=== PATIENT | male | born 1975 | race Caucasian/White ===

== ENCOUNTER 2019-09-17 10:18 | Outpatient (CLI) | payer BC, SELFPAY ==
[2019-09-17 13:19] LABS: Anion Gap 8.8 mmol/L (3-11); BUN 17 mg/dL (7-18); CO2 30.2 mmol/L (21.0-32.0); CREATININE 0.83 mg/dL (0.70-1.30); Calcium 9.4 mg/dL (8.5-10.1); Calculated LDL 106 mg/dL (<100); Chloride 100 mmol/L (98-107); Cholesterol 199 mg/dL (<200); Glucose 91 mg/dL (74-106); HDL Cholesterol 40 mg/dL (40-60); Potassium 4.4 mmol/L (3.5-5.1); Sodium 139 mmol/L (136-145); Triglyceride 268 mg/dL (<150)
== END 2019-09-17 10:38 ==
PROVIDERS: PCP Family Medicine; Visit Provider Family Medicine
DX: Z00.00 Encounter for general adult medical examination without abnormal findings (principal); Z13.220 Encounter for screening for lipoid disorders
CPT/HCPCS: 36415; 80048; 80061

== ENCOUNTER 2020-06-22 05:04 | Outpatient (CLI) | payer BC, SELFPAY ==
[2020-06-22 08:35] LABS: HCT 41.6 % (40.0-50.0); HGB 14.5 g/dL (13.5-17.5); MCH 31.9 pg (27.0-33.0); MCHC 34.9 % (32.0-36.0); MCV 91.4 fL (80-95); MPV 11.7 fL (8.0-11.0); Platelet Count 209 10^3/uL (130-400); RBC 4.55 10^6/uL (4.36-5.78); RDW 12.7 % (11.8-14.1); RDW-SD 42.6 fL; WBC 9.15 10^3/uL (4.4-10.8)
[2020-06-22 09:39] LABS: Anion Gap 14.7 mmol/L (3-11); BUN 14 mg/dL (7-18); CO2 25.3 mmol/L (21.0-32.0); CREATININE 1.01 mg/dL (0.70-1.30); Calcium 9.2 mg/dL (8.5-10.1); Chloride 98 mmol/L (98-107); Glucose 115 mg/dL (74-106); Magnesium 1.9 mg/dL (1.8-2.4); Potassium 3.9 mmol/L (3.5-5.1); Sodium 138 mmol/L (136-145)
== END 2020-06-22 05:24 ==
PROVIDERS: PCP Family Medicine; Visit Provider Family Medicine
DX: R25.2 Cramp and spasm (principal); K21.9 Gastro-esophageal reflux disease without esophagitis; I10 Essential (primary) hypertension
CPT/HCPCS: 36415; 80048; 85027; 83735

== ENCOUNTER 2020-12-28 02:26 | Outpatient (CLI) | payer BC, SELFPAY ==
[2020-12-28 13:12] LABS: Hemoglobin A1C 6.5 % (<5.7)
[2020-12-28 13:22] LABS: Calculated LDL 188 mg/dL (<100); Cholesterol 281 mg/dL (<200); HDL Cholesterol 45 mg/dL (40-60); TSH (W/Ref FT4) 0.73 uIU/mL (0.36-3.74); Triglyceride 240 mg/dL (<150)
== END 2020-12-28 02:27 | disposition home or self-care (01) ==
LOC: LOS 02:26
PROVIDERS: PCP Nurse Practitioner Family; Visit Provider Family Medicine
DX: E66.09 Other obesity due to excess calories (principal); Z13.1 Encounter for screening for diabetes mellitus; Z13.220 Encounter for screening for lipoid disorders
CPT/HCPCS: 36415; 80061; 83036; 84443

== ENCOUNTER 2022-04-30 09:14 | Outpatient (REF) | payer BC, SELFPAY ==
[2022-04-30 16:26] LABS: Abs Immature Grans 0.02 10^3/uL (0.0-0.06); Absolute Basophil Count 0.07 10^3/uL (0.0-0.2); Absolute Eosinophil Count 0.18 10^3/uL (0.0-0.7); Absolute Lymphocyte Count 1.99 10^3/uL (1.2-3.4); Absolute Monocyte Count 0.73 10^3/uL (0.1-0.8); Absolute Neutrophil Count 3.74 10^3/uL (1.2-6.7); Eosinophils % 2.7; HCT 40.2 % (40.0-50.0); HGB 13.3 g/dL (13.5-17.5); Immature Grans % 0.3; Lymphocytes % 29.6; MCH 31.3 pg (27.0-33.0); MCHC 33.1 % (32.0-36.0); MCV 95 fL (80-95); Monocytes % 10.8; Neutrophils % 55.6; Platelet Count 176 10^3/uL (130-400); RBC 4.25 10^6/uL (4.36-5.78); RDW 12.9 % (11.8-14.1); RDW-SD 44.5 fL; WBC 6.73 10^3/uL (4.4-10.8)
[2022-04-30 16:50] LABS: ALT 31 U/L (16-63); AST 19 U/L (15-37); Albumin 4.1 g/dL (3.4-5.0); Alkaline Phosphatase 52 U/L (46-116); Anion Gap 8.8 mmol/L (3-11); BUN 19 mg/dL (7-18); Bilirubin, Total 0.3 mg/dL (0.2-1.0); CO2 26.2 mmol/L (21.0-32.0); CREATININE 0.9 mg/dL (0.70-1.30); Calcium 8.8 mg/dL (8.5-10.1); Calculated LDL 99 mg/dL (<100); Chloride 103 mmol/L (98-107); Cholesterol 168 mg/dL (<200); Estimated GFR 106.67 (mL/min/1.73m2); Glucose 120 mg/dL (74-106); HDL Cholesterol 49 mg/dL (40-60); Potassium 4.5 mmol/L (3.5-5.1); Sodium 138 mmol/L (136-145); Total Protein 7.4 g/dL (6.4-8.2); Triglyceride 104 mg/dL (<150)
[2022-04-30 16:56] LABS: Hemoglobin A1C 6.3 % (<5.7)
== END 2022-04-30 09:15 | disposition home or self-care (01) ==
LOC: NCHCN 09:14
PROVIDERS: PCP Physician Assistant Medical; Visit Provider Physician Assistant Medical
DX: E11.9 Type 2 diabetes mellitus without complications (principal); R25.2 Cramp and spasm; E78.5 Hyperlipidemia, unspecified
CPT/HCPCS: 80053; 80061; 83036; 83735; 85025

== ENCOUNTER 2023-03-11 10:27 | Outpatient (CLI) | payer BC, SELFPAY ==
--- NOTE | 2023-03-11 08:30 | DI.RAD_ITS ---
Exam(s) XR SHOULDER RT COMPLETE 2+V EXAM: XR SHOULDER RT COMPLETE 2+V CLINICAL HISTORY: right shoulder pain. TECHNIQUE: 2D digital imaging was performed of the right shoulder. Two images were obtained. AP an d axillary views were obtained. COMPARISON: No exams were available for comparison FINDINGS: BONES: No acute fracture is present. No bony destructive lesion is seen. JOINTS: No dislocation present. The glenohumeral and acromioclavicular joints are well maintained. SOFT TISSUE: Normal. IMPRESSION: Unremarkable radiographs of the right shoulder. DATA REPOSITORY: RADIATION DOSE DELIVERED:
== END 2023-03-11 10:28 | disposition home or self-care (01) ==
LOC: DIORS 10:27
PROVIDERS: PCP Physician Assistant Medical; Visit Provider Student in an Organized Health Care Education/Training Program
DX: M25.511 Pain in right shoulder (principal)
CPT/HCPCS: 73030

== ENCOUNTER 2023-06-24 10:08 | Day surgery (SDC) | payer BC, SELFPAY | END 2023-06-24 10:09 | disposition home or self-care (01) | LOC: SUR 08-18 10:08 | PROVIDERS: PCP Physician Assistant Medical; Visit Provider Student in an Organized Health Care Education/Training Program | DX: Z53.9 Procedure and treatment not carried out, unspecified reason (principal) ==

== ENCOUNTER 2023-07-20 09:01 | Emergency (ER) | payer BC, SELFPAY ==
[2023-07-20 09:16] VITALS: BP 167/94; PULSE 86; RESP 14; TEMP 36.8; O2SAT 100
--- NOTE | 2023-07-20 09:28 | W.ED.GENAD ---
Discharge Plan Disposition Patient Disposition: Home Condition: Stable Discharge Details Clinical Impression: Right arm pain Primary Care Provider: Rita Rae ED Provider: Sim Lowery Home Meds and New Rx's Prescriptions: Continued (DME) blood-glucose meter [Advanced Glucose Meter] Misc See Rx Instructions .ROUTE .MEDSUPPLY Qty: 1 0RF Rx Instructions: As directed (DME) lancets [1st Tier Unilet ComforTouch] 30 gauge misc See Rx Instructions .ROUTE .MEDSUPPLY Qty: 100 0RF Rx Instructions: Daily omeprazole 20 mg tablet,delayed release (DR/EC) 20 mg PO DAILY Qty: 90 2RF ONE-A-DAY MEN'S 1 TAB tablet 1 tab PO AM (DME) Advanced Gluc Meter Test Strip Strip See Rx Instructions .ROUTE .MEDSUPPLY Qty: 100 4RF Rx Instructions: Daily simvastatin 40 mg tablet 40 mg PO DAILY Qty: 90 3RF chlorthalidone 25 mg tablet 25 mg PO DAILY Qty: 30 0RF losartan 100 mg tablet 100 mg PO DAILY Qty: 90 3RF Jardiance 10 mg tablet 10 mg PO DAILY fluticasone propionate 50 mcg/actuation spray,suspension 2 spray NS DAILY PRN (Reason: allergic rhinitis) Qty: 15.8 5RF bisacodyl 5 mg tablet,delayed release (DR/EC) 5 mg PO ONCE Qty: 4 0RF Rx Instructions: Per Colonoscopy bowel prep instructions polyethylene glycol 3350 17 gram/dose powder 238 g PO ONCE Qty: 238 0RF Rx Instructions: For Colonoscopy bowel prep, as directed by office No Action hydrocodone-acetaminophen 5-325 mg tablet 1 tab PO Q6H PRN (Reason: pain) Qty: 4 0RF acetaminophen 500 mg tablet 1,000 mg PO TID Qty: 90 0RF ibuprofen 600 mg tablet 600 mg PO TID PRN (Reason: pain) Qty: 90 0RF Discharge Instructions Instructions: Arm Pain (ED) Additional Instructions: You were seen in the emergency department for your pain in the right forearm while splitting wood it is possible that you ruptured a tendon, please remain in your sling and rest and ice the area, I did consult with orthopedics and they will follow-up with a visit with you before your surgery on Friday in clinic. Please return for any severe increase in pain especially with fever or inability to move the arm at all. Referrals: Frank Roper MD [ [facility] STAFF PHYSICIAN] - Patrick Jones MD [ [facility] STAFF PHYSICIAN] - Discharge Data Discharge Date/Time-TO BE ENTERED AT DEPARTURE: 07/20/23 09:58 Medical Decision Making This dictation utilizes [id number] dictation software and may contain unedited grammatical errors. 47 y/o M presents to ED today with a chief complaint of sudden onset of R forearm pain while loading a wood-splitter yesterday around 30, has pain with elbow flexion, and lifting objects, notes weakness when trying to perform work activities. Onset and characteristics include burning sensation, no complete numbness/tingling of hand. Patients' medical history: carpal tunnel syndrome. Family and social history: noncontributory. Pertinent exam findings / vital signs include R UE: no unilateral R arm swelling, no lesions or erythema, no warmth to touch, no pain with passive ROM, NV intact R hand, pain in the brachioradialis area, strength 4/5 due to pain with elbow flexion, question abnormality at biceps tendon insertion. Differential / pathologies of concern include tendon rupture, muscle strain/sprain, not fracture, not septic arthritis. Diagnostic studies of: -none, no sign of fracture, XR limited utility. Interventions of: -sling & arranged ortho follow-up. ED Course/Assessment/Plan: Otherwise healthy 47-year-old male presents with sudden onset of right arm pain and weakness while loading a wood splitter, he did not note a pop at time of injury, he has mild weakness with elbow flexion and strength testing due to pain but otherwise is able to partially range his arm. I question an abnormality at the biceps insertion versus brachial radialis tendon injury. I counseled him on sling use but also performing pendulum exercises, as no pain with passive range of motion and no signs of infectious etiology or unilateral arm swelling to suggest vascular pathology. Recommend therapeutic dosing of Tylenol and ibuprofen and following through with orthopedic appointment, spoke with Dr. Roper. Findings not consistent with complete rupture of biceps tendon, septic arthritis, neurovascular compromise of the distal right upper extremity. Disposition of Right Arm Pain. Patient verbalized understanding of the plan and return to ED criteria and engaged in shared decision making. Medical Records Medical records reviewed: Yes I reviewed the patient's medical records. HPI General Date/Time Provider Initiated Documentation: 07/20/23 09:04. HPI Narrative: 47 year-old male presents to ED today by POV/ambulating with a chief complaint of R forearm pain (R-hand dominant) while splitting wood with onset yesterday around 929. Quality described as sudden onset of burning sensation to his R forearm from the bicep area, pain with flexion at elbow, weakness reported with significant lifitng of any kind, no radiation to complete numbness of hand, skin changes, shoulder pain, neck pain, vertigo, fever. Severity is described as 6-7/10. Palliating factors include OTC analgesics with little relief. Provoking factors include flexion, lifting. Events leading up to the incident/Associated Symptoms: Patient has an upcoming surgery for L carpal tunnel syndrome this coming Friday. Patient not anticoagulated. Related Data Home Medications Medication Instructions Recorded Confirmed One-A-Day Men's 1 tab PO AM 10/03/08 07/23/23 blood-glucose meter (Advanced #1 ea 01/15/21 07/21/23 Glucose Meter) lancets 30 gauge (1st Tier Unilet #100 ea 01/15/21 07/21/23 ComforTouch Lancet) blood sugar diagnostic (Advanced #100 ea 01/31/21 07/21/23 Glucose Meter Test Strips) omeprazole 20 mg tablet,delayed 20 mg PO DAILY #90 tabs 09/24/21 07/23/23 release simvastatin 40 mg tablet 40 mg PO DAILY #90 tabs 09/27/21 07/23/23 chlorthalidone 25 mg tablet 25 mg PO DAILY #30 tab-caps 04/24/22 07/23/23 losartan 100 mg tablet 100 mg PO DAILY #90 tab-caps 09/23/22 07/23/23 empagliflozin 10 mg tablet 10 mg PO DAILY 11/26/22 07/22/23 (Jardiance) fluticasone propionate 50 2 spray NS DAILY PRN allergic 03/26/23 07/23/23 mcg/actuation nasal rhinitis #15.8 mL spray,suspension bisacodyl 5 mg tablet,delayed 5 mg PO ONCE Colonoscopy Bowel 06/09/23 07/22/23 release Prep #4 tabs polyethylene glycol 3350 17 238 g PO ONCE #238 grams 06/09/23 07/22/23 gram/dose oral powder acetaminophen 500 mg tablet 1,000 mg (2 x 500 mg) PO TID #90 07/23/23 tabs hydrocodone 5 mg-acetaminophen 325 1 tab PO Q6H PRN pain #4 tabs 07/23/23 mg tablet ibuprofen 600 mg tablet 600 mg PO TID PRN pain #90 tabs 07/23/23 Previous Rx's Medication Instructions Recorded blood-glucose meter (Advanced #1 ea 01/15/21 Glucose Meter) lancets 30 gauge (1st Tier Unilet #100 ea 01/15/21 ComforTouch Lancet) blood sugar diagnostic (Advanced #100 ea 01/31/21 Glucose Meter Test Strips) omeprazole 20 mg tablet,delayed 20 mg PO DAILY #90 tabs 09/24/21 release simvastatin 40 mg tablet 40 mg PO DAILY #90 tabs 09/27/21 chlorthalidone 25 mg tablet 25 mg PO DAILY #30 tab-caps 04/24/22 losartan 100 mg tablet 100 mg PO DAILY #90 tab-caps 09/23/22 fluticasone propionate 50 2 spray NS DAILY PRN allergic 03/26/23 mcg/actuation nasal rhinitis #15.8 mL spray,suspension bisacodyl 5 mg tablet,delayed 5 mg PO ONCE Colonoscopy Bowel 06/09/23 release Prep #4 tabs polyethylene glycol 3350 17 238 g PO ONCE #238 grams 06/09/23 gram/dose oral powder acetaminophen 500 mg tablet 1,000 mg (2 x 500 mg) PO TID #90 07/23/23 tabs hydrocodone 5 mg-acetaminophen 325 1 tab PO Q6H PRN pain #4 tabs 07/23/23 mg tablet ibuprofen 600 mg tablet 600 mg PO TID PRN pain #90 tabs 07/23/23 Allergies Allergy/AdvReac Type Severity Reaction Status Date / Time No Known Allergies Allergy Verified 07/23/23 07:55 General Stated Complaint: GenMedical SAM: 4 Review of Systems All systems reviewed & are unremarkable except as noted in HPI and below PFSH All Active Problems Right carpal tunnel syndrome (Acute) S/P ECTR: 07/23/2023 Traumatic partial tear of right biceps tendon (Acute) Right arm pain (Acute) Laceration of right middle finger (Acute) Tendinitis of long head of biceps brachii of both shoulders (Acute) Peripheral neuralgia (Chronic 03/31/12) Gastroesophageal reflux disease without esophagitis (Chronic 08/10/15) Essential hypertension (Chronic 08/03/13) Achilles tendinitis of both lower extremities (Acute) Epigastric pain (Acute) Obesity due to excess calories (Acute) Allergic rhinitis (Acute) Diabetes (Chronic) Hyperlipidemia associated with type 2 diabetes mellitus (Acute) Medical History Hypertension GERD (gastroesophageal reflux disease) Type 2 diabetes mellitus Decreased hearing of left ear Hyperlipidemia Muscle cramps Sore throat Pain in left shoulder Bilateral carpal tunnel syndrome Surgical History Repair of inguinal hernia (~2008) RIGHT Family History Father Hyperlipidemia Asthma Esophageal cancer Alcohol abuse Diabetes Sister Essential hypertension Mother No problems noted. Son No problems noted. Daughter No problems noted. Daughter No problems noted. Sister No problems noted. Social History Smoking/Tobacco Use Status: Former Tobacco Use tobacco type: cigarettes Quit Date: 12/04/18 Tobacco: How many years used: 20 Second Hand Exposure: Yes Smoking risk assessment performed?: Yes Alcohol Intake: current Alcohol Intake frequency: 3 or more drinks per day Alcohol type: beer Drug use: Never Substance use type: does not use Caregiver/Support person: No Household members: spouse, children and foster family Housing: house Pets and animals: Yes Pets and animals: cat(s), dog(s) and horse(s) Sexually active: Yes Do you think of yourself as: straight/heterosexual Current gender identity: male What is your relationship status?: How often do you talk on the phone with friends or family?: three or more times per week How often do you get together with friends or relatives?: once per week How often do you attend cheondoism or congregational services?: decline to answer Do you belong to any clubs or organized social groups?: no Panel score (0-1 are the most socially isolated patients): 2 Nila/Sikhism: No preference Special nila needs: No Seatbelt use: sometimes Helmet use: Yes Helmet use: always 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 SKIN: Warm, pink, dry, intact, without rashes/lesions/ulcerations. HEAD: Normocephalic, atraumatic, normal hair distribution for gender/age. EYES: Pupils PERRLA, EOMs intact without nystagmus, normal conjunctiva, no exudates on lids/lashes. ENT: Nares patent, no circumoral cyanosis, no facial swelling NECK: Supple, trachea midline, painless cervical ROM. LUNGS/CHEST: Non-labored respirations, normal A/P diameter, symmetrical expansion, no chest wall deformity HEART (CV/PV): Regular rate, R radial pulse 2+, no peripheral edema, no JVD. ABDOMEN: Soft, non-distended, no guarding. MSK: Normal ROM, no swelling/deformity to bilateral UEs or LEs, moving all extremities without weakness, no cyanosis, spine midline without tenderness, normal curvature. R UE: no unilateral R arm swelling, no lesions or erythema, no warmth to touch, no pain with passive ROM, NV intact R hand, pain in the brachioradialis area, strength 4/5 due to pain with elbow flexion, question abnormality at biceps tendon insertion NEURO: Mental Status AAOx4 - alert to person, place, time, events No facial droop, no forehead involvement. Motor: No focal weakness - strength 5/5 in bilateral UEs and LEs, proximal and distal, symmetric. Sensory: sensation intact to light touch globally. Gait normal: patient ambulated without ataxia into ED room. PSYCH: euthymic, cooperative, pleasant, appropriate speech Course Vital Signs Vital signs: Vital Signs Temperature 36.8 C 07/20/23 09:16 Pulse 86 07/20/23 09:16 Respiratory Rate 14 07/20/23 09:16 Blood Pressure 167/94 H 07/20/23 09:16 Pulse Oximetry 100 07/20/23 09:16 Temperature 36.8 C 07/20/23 09:16 Temperature Source Oral 07/20/23 09:16 Pulse 86 07/20/23 09:16 Respiratory Rate 14 07/20/23 09:16 Blood Pressure 167/94 H 07/20/23 09:16 Blood Pressure Position Sitting 07/20/23 09:16 Pulse Oximetry 100 07/20/23 09:16 Oxygen Delivery Method Room Air 07/20/23 09:16 Oxygen Flow Rate 0 07/20/23 09:16
[2023-07-20 09:29] VITALS: BP 167/94; PULSE 88; RESP 14; O2SAT 96
== END 2023-07-20 09:58 | disposition home or self-care (01) ==
PROVIDERS: Emergency Provider Physician Assistant; PCP Physician Assistant Medical
DX: M79.631 Pain in right forearm (principal)
CPT/HCPCS: 99283

== ENCOUNTER 2023-07-21 16:01 | Outpatient (CLI) | payer BC, SELFPAY ==
--- NOTE | 2023-07-21 14:30 | DI.RAD_ITS ---
Exam(s) XR ELBOW RT COMPLETE EXAM: XR ELBOW RT COMPLETE CLINICAL HISTORY: eval L elbow pain. TECHNIQUE: 2D digital imaging was performed of the left elbow. Three images were obtained. AP, lat eral and oblique views were obtained. COMPARISON: CR RIGHT ELBOW LIMITED from 12/09/2017 FINDINGS: BONES: No acute fracture is present. No bony destructive lesion is seen. There again seen findings of biceps tendon repair. There is a small enthesophyte at the olecranon. JOINTS: The elbow is normally aligned. No joint effusion is seen. SOFT TISSUE: Dystrophic calcifications are now seen anterior to the biceps tuberosity on the proximal radius. There are hypertrophic changes seen at the biceps tuberosity. IMPRESSION: Hypertrophic changes seen at the biceps tuberosity of the proximal radius with adjacent dystrophic ca lcifications. DATA REPOSITORY: RADIATION DOSE DELIVERED:
== END 2023-07-21 16:02 | disposition home or self-care (01) ==
LOC: DIORS 16:02
PROVIDERS: PCP Physician Assistant Medical; Visit Provider Student in an Organized Health Care Education/Training Program
DX: M61.422 Other calcification of muscle, left upper arm (principal); M25.522 Pain in left elbow
CPT/HCPCS: 73080

== ENCOUNTER 2023-07-23 07:20 | Day surgery (SDC) | payer BC, SELFPAY ==
--- NOTE | 2023-07-23 07:30 | W.PM.DSUDISC ---
Date of service: 07/23/23 Time of Service: 07:30 Discharge Plan Disposition Patient Disposition: Home Condition: Good Discharge Details Reason For Visit: R ECTR Attending Provider: Patrick Jones Primary Care Provider: Rita Rae Home Meds and New Rx's Prescriptions: New hydrocodone-acetaminophen 5-325 mg tablet 1 tab PO Q6H PRN (Reason: pain) Qty: 4 0RF acetaminophen 500 mg tablet 1,000 mg PO TID Qty: 90 0RF ibuprofen 600 mg tablet 600 mg PO TID PRN (Reason: pain) Qty: 90 0RF Continued (DME) blood-glucose meter [Advanced Glucose Meter] Misc See Rx Instructions .ROUTE .MEDSUPPLY Qty: 1 0RF Rx Instructions: As directed (DME) lancets [1st Tier Unilet ComforTouch] 30 gauge misc See Rx Instructions .ROUTE .MEDSUPPLY Qty: 100 0RF Rx Instructions: Daily omeprazole 20 mg tablet,delayed release (DR/EC) 20 mg PO DAILY Qty: 90 2RF ONE-A-DAY MEN'S 1 TAB tablet 1 tab PO AM (DME) Advanced Gluc Meter Test Strip Strip See Rx Instructions .ROUTE .MEDSUPPLY Qty: 100 4RF Rx Instructions: Daily simvastatin 40 mg tablet 40 mg PO DAILY Qty: 90 3RF chlorthalidone 25 mg tablet 25 mg PO DAILY Qty: 30 0RF losartan 100 mg tablet 100 mg PO DAILY Qty: 90 3RF Jardiance 10 mg tablet 10 mg PO DAILY fluticasone propionate 50 mcg/actuation spray,suspension 2 spray NS DAILY PRN (Reason: allergic rhinitis) Qty: 15.8 5RF bisacodyl 5 mg tablet,delayed release (DR/EC) 5 mg PO ONCE Qty: 4 0RF Rx Instructions: Per Colonoscopy bowel prep instructions polyethylene glycol 3350 17 gram/dose powder 238 g PO ONCE Qty: 238 0RF Rx Instructions: For Colonoscopy bowel prep, as directed by office Discharge Instructions Stand Alone Forms: Karen Lopez Tunnel Release Referrals: Patrick Jones MD [ [facility] STAFF PHYSICIAN] - Activity:: Activity as Tolerated Remove Dressings/Wound Care:: 48 hours Shower/Bathe:: 48 hours Diet:: As Tolerated Discharge Orders Discharge Orders: Discharge Order (Routine); Ordered 07/23/23 Ordered By: Devonte Carter DS: Diagnosis Discharge Diagnosis (1) Right carpal tunnel syndrome: Status: Acute
[2023-07-23 08:01] VITALS: BP 127/84; PULSE 79; RESP 16; TEMP 36.7; O2SAT 97
--- NOTE | 2023-07-23 08:21 | W.ANESPRE ---
General Info Date of Service Date Performed: 07/23/23 Height: 5 ft 8 in Weight: 115.2 kg Body Mass Index (BMI): 38.6 Surgical Procedure: Operation Date: 07/23/23 09:25 Proposed Procedure Side Surgeon p Wrist ECTR Right Patrick Jones MD Meds Allergies and Home Medications Allergies Allergy/AdvReac Type Severity Reaction Status Date / Time No Known Allergies Allergy Verified 07/23/23 07:55 Home Medication Medication Instructions Recorded One-A-Day Men's 1 tab PO AM 10/03/08 blood-glucose meter (Advanced #1 ea 01/15/21 Glucose Meter) lancets 30 gauge (1st Tier Unilet #100 ea 01/15/21 ComforTouch Lancet) blood sugar diagnostic (Advanced #100 ea 01/31/21 Glucose Meter Test Strips) omeprazole 20 mg tablet,delayed 20 mg PO DAILY #90 tabs 09/24/21 release simvastatin 40 mg tablet 40 mg PO DAILY #90 tabs 09/27/21 chlorthalidone 25 mg tablet 25 mg PO DAILY #30 tab-caps 04/24/22 losartan 100 mg tablet 100 mg PO DAILY #90 tab-caps 09/23/22 empagliflozin 10 mg tablet 10 mg PO DAILY 11/26/22 (Jardiance) fluticasone propionate 50 2 spray NS DAILY PRN allergic 03/26/23 mcg/actuation nasal rhinitis #15.8 mL spray,suspension bisacodyl 5 mg tablet,delayed 5 mg PO ONCE Colonoscopy Bowel 06/09/23 release Prep #4 tabs polyethylene glycol 3350 17 238 g PO ONCE #238 grams 06/09/23 gram/dose oral powder acetaminophen 500 mg tablet 1,000 mg (2 x 500 mg) PO TID #90 07/23/23 tabs hydrocodone 5 mg-acetaminophen 325 1 tab PO Q6H PRN pain #4 tabs 07/23/23 mg tablet ibuprofen 600 mg tablet 600 mg PO TID PRN pain #90 tabs 07/23/23 Current Visit Medications: Current Medications Generic Name Dose Route Start Last Admin Trade Name Freq PRN Reason Stop Dose Admin Acetaminophen 650 mg 07/23/23 07:30 Acetaminophen 325 Mg Tab PO 08/22/23 07:29 Q4H PRN PRN Hydrocodone Bitart/Acetaminophen 0 tab 07/23/23 07:30 Hydrocodone 5/Acetaminophen 325 Tab PO 08/22/23 07:29 Q3H PRN PRN Pain Ringer's Solution 1,000 mls @ 80 mls/hr 07/23/23 06:00 IV 07/23/23 23:59 INFUSION VAIBHAV Cefazolin Sodium/Dextrose 2 gm in 50 mls @ 100 mls/hr 07/23/23 06:00 Ancef Duplex IVPB 07/23/23 23:59 PREOP VAIBHAV IV Miscellaneous Supplies 1 each 07/23/23 06:00 Iv Access IV 07/23/23 23:59 DIRECTED VAIBHAV Sodium Chloride 0 ml 07/23/23 06:00 Normal Saline Flush 10 Ml Syr IV 07/23/23 23:59 PRN PRN Sodium Chloride 0 ml 07/23/23 06:00 Normal Saline 10 Ml Vial IJ 07/23/23 23:59 DIRECTED PRN Sterile Water 0 ml 07/23/23 06:00 Water,Injection,Sterile 10 Ml Vial IJ 07/23/23 23:59 DIRECTED PRN PFSH Active Problems Active Problems: Problem Status Onset Code Right carpal tunnel syndrome G56.01 Traumatic partial tear of right biceps tendon S46.211A Right arm pain M79.601 Laceration of right middle finger S61.212A Tendinitis of long head of biceps brachii of both shoulders M75.21, M75.22 Peripheral neuralgia 03/31/12 M79.2 Gastroesophageal reflux disease without esophagitis 08/10/15 K21.9 Essential hypertension 08/03/13 I10 Achilles tendinitis of both lower extremities M76.61, M76.62 Epigastric pain R10.13 Obesity due to excess calories E66.09 Allergic rhinitis J30.9 Diabetes E11.9 Hyperlipidemia associated with type 2 diabetes mellitus E11.69, E78.5 Medical History Medical History Hypertension GERD (gastroesophageal reflux disease) Type 2 diabetes mellitus Decreased hearing of left ear Hyperlipidemia Muscle cramps Sore throat Pain in left shoulder Bilateral carpal tunnel syndrome Surgical History Surgical History Repair of inguinal hernia (~2008) RIGHT Tobacco Smoking/Tobacco Use Status: Former Tobacco Use Passive smoking exposure: Yes Second hand exposure: Yes Alcohol Alcohol Intake: current Alcohol intake frequency: 3 or more drinks per day Alcohol type: beer Substance Use Substance use: Never Substance use type: does not use Vital Signs and Lab Results Vital Signs Most Recent Vital Signs in EMR: Most Recent Vital Signs Temp Pulse Resp BP Pulse Ox 36.7 C 79 16 127/84 97 07/23/23 08:01 07/23/23 08:01 07/23/23 08:01 07/23/23 08:01 07/23/23 08:01 Lab Results Blood Type / Crossmatch: No Data to Display Complete Blood Count: No Data to Display Complete Metabolic Panel: No Data to Display Liver Function Panel: No Data to Display Coagulation Panel: No Data to Display Cardiac Panel: No Data to Display Arterial Blood Gas: No Data to Display Venous Blood Gas: No Data to Display Pancreas Panel: No Data to Display Thyroid Panel: No Data to Display Infectious Disease: No Data to Display Blood Cultures: No Data to Display Toxicology Panel: No Data to Display Anesthesia Assessment and Plan Anesthesia History Personal History: No History of Anesthesia Complications Family History: No Family History of Anesthesia Complications Exercise Tolerance Exercise Tolerance: Metabolic Equivalents>4 Cardiac & Pulmonary Exam Cardiac Exam: Normal S1/S2 Heart Sounds Pulmonary Exam: Clear Bilateral Breath Sounds Implantable Cardiac Device Does patient have a Pacemaker or an ICD?: No Airway Exam Known Difficult Airway: No Mallampati Class: 3 Mouth Opening: Normal (> 3cm) Thyromental Distance: Greater than 3 cm Neck Range of Motion: Limited ROM Neck Circumference: Thick Teeth Condition: Generalized Poor Dentition ASA Classification ASA Score: ASA 2 Emergency Case?: No NPO Status NPO Status: NPO Clears >2 hours, Solids >8 hours Anesthesia Plan Resuscitation Status: Full Code Anesthesia Technique: General Anesthesia Airway Planned: Natural Airway Monitors Used: Standard Monitors Preoperative Comments:: 47 yo male for ECTR. Sig PMHx: HTN (chlorthalidone, losartan), GERD (omeprazole, well controlled), DM (tommydaince, last A1c 6.3), former smoker, daily EtOH.
[2023-07-23 08:24] VITALS: BMI 38.6
[2023-07-23] MEDS: Lactated Ringers 1,000 ML 80 ML IV (08:40)
[2023-07-23] MEDS: ceFAZolin 2 GM/50 ML BAG IVPB (09:14)
[2023-07-23] MEDS: Lidocaine 1% Multi-Dose W/EPI 1/100,000 50 ML VIAL (09:21)
[2023-07-23 09:30] VITALS: BP 133/94; PULSE 82; RESP 18; TEMP 36.4; O2SAT 94
--- NOTE | 2023-07-23 09:43 | W.PM.OP ---
Date of service: 07/23/23 Time of Service: 09:15 Operative Note Operative Note DATE OF PROCEDURE: 07/23/23 PRE-OP DIAGNOSIS: Right Carpal Tunnel Syndrome POST-OP DIAGNOSIS: same PROCEDURE: Right Endoscopic Carpal Tunnel Release SURGEON: Patrick Jones ANESTHESIA TYPE: General:No Airway Refer to Anesthesia Record ESTIMATED BLOOD LOSS: 0 PATHOLOGY: none sent TOURNIQUET TIME: 6 COMPLICATIONS: None Patient was transported to: same day Patient's condition: stable Indications: I have seen Logan in clinic for symptoms of carpal tunnel syndrome. The numbness, tingling, and pain limited function. Clinical exam findings with nerve conduction tests confirmed the diagnosis of carpal tunnel syndrome. Nonoperative measures such as bracing, time, activity modifications had been tried but disability and pain persisted. I discussed carpal tunnel release with the patient. I reviewed the risks of the procedure to include, but not limited to, bleeding, infection, pain, stiffness, incomplete release, damage to nerves or vessels, persistent numbness, recurrence. Despite these risks, the patient elected to proceed. Findings: There was tightened carpal tunnel. This was dilated and released successfully with the endoscopic with increased space within the tunnel. The antebrachial fascia was released proximally freeing the median nerve at the wrist. Procedure Description: Logan was greeted in the preoperative holding area where the correct side was identified and marked. The consent was reviewed with the patient and signed. The history and physical was updated. All questions were answered. He was taken back to the operating room. The patient was placed into the supine position on the operating room table with the right arm on an arm board. A nonsterile tourniquet was placed high onto the arm. All bony prominences were well padded. Prophylactic antibiotics in the form of Cefazolin were administered. The right arm was then prepped with Chloraprep and draped in a standard fashion with stockinette and extremity drape. A timeout to confirm correct identity, side and site, procedure, allergies, anesthesia, and medical concerns was performed. The surgical site was marked in the volar wrist creases in line with the radial border of the fourth ray. This area was anesthetized with approximately 6cc of 1% Lidocaine. The limb was then exsanguinated with an Esmarch. The skin was incised with a 15 blade, approximately 1cm. The skin only was cut and the deeper tissue was dissected bluntly with a tenotomy scissor, avoiding passing nerve and venous structures. The fascia was penetrated and opened bluntly. A two-prong skin hook was placed under this proximal fascial edge. A series of hamate finders were used to identify and dilate the carpal tunnel. Synovial elevator was used to free synovial attachments to the underside of the transverse carpal ligament. My thumb was kept in the palm to myron the distal extent of the carpal tunnel and correctly position the hand. The Microaire endoscope was inserted without difficulty and without resistance. Excellent visualization showed horizontally running fibers of the transverse carpal ligament (TCL). The distal extent of the TCL was visualized and the end of the scope palpated with the thumb. The blade was elevated and withdrawn from distal to proximal. The TCL was split into two flaps. The endoscope was reinserted to confirm complete release and any remnant ligament was incised. The scope was withdrawn and the proximal aspect of the carpal tunnel was grossly inspected and appeared release with the median nerve visible. The antebrachial fascia at the level of the wrist was then freed from the overlying skin and then the underlying median nerve with blunt dissection. This was transected longitudinally for about 3cm proximal to the wrist incision. The wound was then irrigated with easy flow of irrigant distally and proximally. The incision was closed with a single 4-0 Nylon suture. The wound was dressed with Xeroform, Gauze, Kerlix and Richard. The tourniquet was deflated with the initial dressing and held with some pressure. Blood flow returned easily to all digits with capillary refill less than 2 seconds. The patient tolerated the procedure well and was returned to the Same Day Surgery area in a stable condition suffering no known complication.
--- NOTE | 2023-07-23 09:53 | W.ANESPOSTOP ---
Postoperative Evaluation Date, Time and Location Date Performed: 07/23/23 Time Performed: 09:53 Patient Location: Day Surgery Unit Vital Signs Most Recent Imported Vital Signs: Most Recent Vital Signs Temp Pulse Resp BP Pulse Ox 36.4 C L 82 18 133/94 H 94 07/23/23 09:30 07/23/23 09:30 07/23/23 09:30 07/23/23 09:30 07/23/23 09:30 Pain Score Most Recent Pain Score: Most Recent Pain Score Pain Level 0 07/23/23 08:01 Assessment Mental Status: Awake (Alert & Oriented to Patient Baseline) Airway and Respiratory Function: Patent airway with normal (patient baseline) respiratory exam Cardiovascular Function: Hemodynamically Stable Hydration Status: Adequately Hydrated Nausea & Vomiting: No Nausea or Vomiting Pain: Pt. Denies Any Pain Peripheral Nerve Block: Patient did not receive a nerve block
[2023-07-23 09:58] VITALS: BP 124/82; PULSE 76; RESP 16; TEMP 36.5; O2SAT 96
== END 2023-07-23 10:42 | disposition home or self-care (01) ==
PROVIDERS: PCP Physician Assistant Medical; Visit Provider Student in an Organized Health Care Education/Training Program
PROC: 01N54ZZ Release Median Nerve, Percutaneous Endoscopic Approach (ICD-10-PCS; CPT 29848; principal; 2023-07-23 09:15)
DX: G56.01 Carpal tunnel syndrome, right upper limb (principal)
CPT/HCPCS: 29848; J0690; J2001; J2250; J2704; J3010

== ENCOUNTER 2023-07-31 06:15 | Day surgery (SDC) | payer BC, SELFPAY ==
[2023-07-31 06:18] VITALS: PULSE 83; RESP 16; TEMP 36.1; O2SAT 96
--- NOTE | 2023-07-31 06:58 | W.ANESPRE ---
General Info Date of Service Date Performed: 07/31/23 Height: 5 ft 8 in Weight: 117.2 kg Body Mass Index (BMI): 39.2 Surgical Procedure: Operation Date: 07/31/23 07:40 Proposed Procedure Side Surgeon p Wrist ECTR Left Patrick Jones MD Meds Allergies and Home Medications Allergies Allergy/AdvReac Type Severity Reaction Status Date / Time No Known Allergies Allergy Verified 07/30/23 14:31 Home Medication Medication Instructions Recorded One-A-Day Men's 1 tab PO AM 10/03/08 blood-glucose meter (Advanced #1 ea 01/15/21 Glucose Meter) lancets 30 gauge (1st Tier Unilet #100 ea 01/15/21 ComforTouch Lancet) blood sugar diagnostic (Advanced #100 ea 01/31/21 Glucose Meter Test Strips) omeprazole 20 mg tablet,delayed 20 mg PO DAILY #90 tabs 09/24/21 release simvastatin 40 mg tablet 40 mg PO DAILY #90 tabs 09/27/21 chlorthalidone 25 mg tablet 25 mg PO DAILY #30 tab-caps 04/24/22 losartan 100 mg tablet 100 mg PO DAILY #90 tab-caps 09/23/22 empagliflozin 10 mg tablet 10 mg PO DAILY 11/26/22 (Jardiance) fluticasone propionate 50 2 spray NS DAILY PRN allergic 03/26/23 mcg/actuation nasal rhinitis #15.8 mL spray,suspension bisacodyl 5 mg tablet,delayed 5 mg PO ONCE Colonoscopy Bowel 06/09/23 release Prep #4 tabs polyethylene glycol 3350 17 238 g PO ONCE #238 grams 06/09/23 gram/dose oral powder acetaminophen 500 mg tablet 1,000 mg (2 x 500 mg) PO TID #90 07/23/23 tabs hydrocodone 5 mg-acetaminophen 325 1 tab PO Q6H PRN pain #4 tabs 07/23/23 mg tablet ibuprofen 600 mg tablet 600 mg PO TID PRN pain #90 tabs 07/23/23 Current Visit Medications: Current Medications Generic Name Dose Route Start Last Admin Trade Name Freq PRN Reason Stop Dose Admin Ringer's Solution 1,000 mls @ 80 mls/hr 07/31/23 06:00 IV 08/03/23 23:59 INFUSION VAIBHAV Cefazolin Sodium/Dextrose 2 gm in 50 mls @ 100 mls/hr 07/31/23 06:00 Ancef Duplex IVPB 07/31/23 23:59 PREOP VAIBHAV IV Miscellaneous Supplies 1 each 07/31/23 06:00 Iv Access IV 08/03/23 23:59 DIRECTED VAIBHAV Sodium Chloride 0 ml 07/31/23 06:00 Normal Saline Flush 10 Ml Syr IV 08/03/23 23:59 PRN PRN Sodium Chloride 0 ml 07/31/23 06:00 Normal Saline 10 Ml Vial IJ 08/03/23 23:59 DIRECTED PRN Sterile Water 0 ml 07/31/23 06:00 Water,Injection,Sterile 10 Ml Vial IJ 08/03/23 23:59 DIRECTED PRN PFSH Active Problems Active Problems: Problem Status Onset Code Right carpal tunnel syndrome G56.01 Traumatic partial tear of right biceps tendon S46.211A Right arm pain M79.601 Laceration of right middle finger S61.212A Tendinitis of long head of biceps brachii of both shoulders M75.21, M75.22 Peripheral neuralgia 03/31/12 M79.2 Gastroesophageal reflux disease without esophagitis 08/10/15 K21.9 Essential hypertension 08/03/13 I10 Achilles tendinitis of both lower extremities M76.61, M76.62 Epigastric pain R10.13 Obesity due to excess calories E66.09 Allergic rhinitis J30.9 Diabetes E11.9 Hyperlipidemia associated with type 2 diabetes mellitus E11.69, E78.5 Medical History Medical History Hypertension GERD (gastroesophageal reflux disease) Type 2 diabetes mellitus Decreased hearing of left ear Hyperlipidemia Muscle cramps Sore throat Pain in left shoulder Bilateral carpal tunnel syndrome Surgical History Surgical History History of carpal tunnel release Repair of inguinal hernia (~2008) RIGHT Tobacco Smoking/Tobacco Use Status: Former Tobacco Use Passive smoking exposure: Yes Second hand exposure: Yes Alcohol Alcohol Intake: current Alcohol intake frequency: 3 or more drinks per day Alcohol type: beer Substance Use Substance use: Never Substance use type: does not use Vital Signs and Lab Results Vital Signs Most Recent Vital Signs in EMR: Most Recent Vital Signs Temp Pulse Resp Pulse Ox 36.1 C L 83 16 96 07/31/23 06:18 07/31/23 06:18 07/31/23 06:18 07/31/23 06:18 Point of Care Results Point of Care Results: Finger Stick Blood Glucose 125 07/31/23 06:31 Lab Results Blood Type / Crossmatch: No Data to Display Complete Blood Count: No Data to Display Complete Metabolic Panel: No Data to Display Liver Function Panel: No Data to Display Coagulation Panel: No Data to Display Cardiac Panel: No Data to Display Arterial Blood Gas: No Data to Display Venous Blood Gas: No Data to Display Pancreas Panel: No Data to Display Thyroid Panel: No Data to Display Infectious Disease: No Data to Display Blood Cultures: No Data to Display Toxicology Panel: No Data to Display Anesthesia Assessment and Plan Anesthesia History Personal History: No History of Anesthesia Complications Family History: No Family History of Anesthesia Complications Exercise Tolerance Exercise Tolerance: Metabolic Equivalents>4 Pertinent Negatives Pertinent Negatives: No Symptoms of GERD Cardiac & Pulmonary Exam Cardiac Exam: Normal S1/S2 Heart Sounds Pulmonary Exam: Clear Bilateral Breath Sounds Implantable Cardiac Device Does patient have a Pacemaker or an ICD?: No Airway Exam Known Difficult Airway: No Mallampati Class: 3 Mouth Opening: Normal (> 3cm) Thyromental Distance: Greater than 3 cm Neck Range of Motion: Limited ROM Neck Circumference: Thick Teeth Condition: Generalized Poor Dentition ASA Classification ASA Score: ASA 3 Emergency Case?: No NPO Status NPO Status: NPO Clears >2 hours, Solids >8 hours Anesthesia Plan Resuscitation Status: Full Code Anesthesia Technique: General Anesthesia Airway Planned: Natural Airway Monitors Used: Standard Monitors
[2023-07-31] MEDS: Lactated Ringers 1,000 ML 80 ML IV (06:59)
[2023-07-31 07:00] VITALS: BMI 39.2
--- NOTE | 2023-07-31 07:21 | W.PM.DSUDISC ---
Date of service: 07/31/23 Time of Service: 07:23 Discharge Plan Disposition Patient Disposition: Home Condition: Good Discharge Details Reason For Visit: Left carpal tunnel syndrome Attending Provider: Patrick Jones Primary Care Provider: Rita Rae Home Meds and New Rx's Prescriptions: New hydrocodone-acetaminophen 5-325 mg tablet 1 tab PO Q6H PRN (Reason: severe pain) Qty: 4 0RF Rx Instructions: Take one tablet up to every 6 hours as needed for severe postoperative pain Continued (DME) blood-glucose meter [Advanced Glucose Meter] Misc See Rx Instructions .ROUTE .MEDSUPPLY Qty: 1 0RF Rx Instructions: As directed (DME) lancets [1st Tier Unilet ComforTouch] 30 gauge misc See Rx Instructions .ROUTE .MEDSUPPLY Qty: 100 0RF Rx Instructions: Daily omeprazole 20 mg tablet,delayed release (DR/EC) 20 mg PO DAILY Qty: 90 2RF ONE-A-DAY MEN'S 1 TAB tablet 1 tab PO AM (DME) Advanced Gluc Meter Test Strip Strip See Rx Instructions .ROUTE .MEDSUPPLY Qty: 100 4RF Rx Instructions: Daily simvastatin 40 mg tablet 40 mg PO DAILY Qty: 90 3RF chlorthalidone 25 mg tablet 25 mg PO DAILY Qty: 30 0RF losartan 100 mg tablet 100 mg PO DAILY Qty: 90 3RF Jardiance 10 mg tablet 10 mg PO DAILY fluticasone propionate 50 mcg/actuation spray,suspension 2 spray NS DAILY PRN (Reason: allergic rhinitis) Qty: 15.8 5RF bisacodyl 5 mg tablet,delayed release (DR/EC) 5 mg PO ONCE Qty: 4 0RF Rx Instructions: Per Colonoscopy bowel prep instructions polyethylene glycol 3350 17 gram/dose powder 238 g PO ONCE Qty: 238 0RF Rx Instructions: For Colonoscopy bowel prep, as directed by office hydrocodone-acetaminophen 5-325 mg tablet 1 tab PO Q6H PRN (Reason: pain) Qty: 4 0RF acetaminophen 500 mg tablet 1,000 mg PO TID Qty: 90 0RF ibuprofen 600 mg tablet 600 mg PO TID PRN (Reason: pain) Qty: 90 0RF Discharge Instructions Stand Alone Forms: Karen Lopez Tunnel Release Referrals: Patrick Jones MD [ [facility] STAFF PHYSICIAN] - Activity:: Activity as Tolerated Remove Dressings/Wound Care:: 48 hours Shower/Bathe:: 48 hours Diet:: As Tolerated Discharge Orders Discharge Orders: Discharge Order (Routine); Ordered 07/31/23 Ordered By: Val Posadas
--- NOTE | 2023-07-31 07:24 | HPE_ITS ---
Assessment and Plan Assessment and plan (1) Left carpal tunnel syndrome: Status: Acute Assessment and plan: Logan is a 47-year-old who has known carpal tunnel syndrome about both sides, now status post right endoscopic carpal tunnel release. He has no signs of complication about the right side. He is ready to proceed with the left side. Once again I reviewed the risk of the procedure to include bleeding, infection, pain, stiffness, recurrence of stiffness or numbness, incomplete release, continued symptoms, need for repeat procedures. Despite these risk, he elects to proceed. History of Present Illness History of Present Illness Chief Complaint: Left carpal tunnel syndrome Narrative: Logan is a 47-year-old who has carpal tunnel syndrome about both hands. He is now status post right carpal tunnel release. He is doing left and the right side and is here for the left side today. He denies any changes to his health. No new symptoms. No fever or chills. No chest pain or shortness of breath. No recent illness. Review of Systems All systems reviewed & are unremarkable except as noted in HPI and below PFSH All Active Problems (Updated 07/31/23 @ 07:25 by Patrick Jones MD) Left carpal tunnel syndrome (Acute) Right carpal tunnel syndrome (Acute) S/P ECTR: 07/23/2023 Traumatic partial tear of right biceps tendon (Acute) Right arm pain (Acute) Laceration of right middle finger (Acute) Tendinitis of long head of biceps brachii of both shoulders (Acute) Peripheral neuralgia (Chronic 03/31/12) Gastroesophageal reflux disease without esophagitis (Chronic 08/10/15) Essential hypertension (Chronic 08/03/13) Achilles tendinitis of both lower extremities (Acute) Epigastric pain (Acute) Obesity due to excess calories (Acute) Allergic rhinitis (Acute) Diabetes (Chronic) Hyperlipidemia associated with type 2 diabetes mellitus (Acute) Medical History Hypertension GERD (gastroesophageal reflux disease) Type 2 diabetes mellitus Decreased hearing of left ear Hyperlipidemia Muscle cramps Sore throat Pain in left shoulder Bilateral carpal tunnel syndrome Surgical History History of carpal tunnel release Repair of inguinal hernia (~2008) RIGHT Family History Father Hyperlipidemia Asthma Esophageal cancer Alcohol abuse Diabetes Sister Essential hypertension Mother No problems noted. Son No problems noted. Daughter No problems noted. Daughter No problems noted. Sister No problems noted. Social History Smoking/Tobacco Use Status: Former Tobacco Use tobacco type: cigarettes Quit Date: 12/04/18 Tobacco: How many years used: 20 Second Hand Exposure: Yes Smoking risk assessment performed?: Yes Alcohol Intake: current Alcohol Intake frequency: 3 or more drinks per day Alcohol type: beer Drug use: Never Substance use type: does not use Caregiver/Support person: No Household members: spouse, children and foster family Housing: house Pets and animals: Yes Pets and animals: cat(s), dog(s) and horse(s) Sexually active: Yes Do you think of yourself as: straight/heterosexual Current gender identity: male What is your relationship status?: How often do you talk on the phone with friends or family?: three or more times per week How often do you get together with friends or relatives?: once per week How often do you attend uatsdin or christianity services?: decline to answer Do you belong to any clubs or organized social groups?: no Panel score (0-1 are the most socially isolated patients): 2 Nila/Scientologist: No preference Special nila needs: No Seatbelt use: sometimes Helmet use: Yes Helmet use: always Drive intox or ride w/intox auto crane driver: No Do you feel safe at home: Yes Do you feel safe in your relationship?: Yes Meds Allergies and Home Medications Allergies Allergy/AdvReac Type Severity Reaction Status Date / Time No Known Allergies Allergy Verified 07/30/23 14:31 Home Medications Medication Instructions Recorded Confirmed Type One-A-Day Men's 1 tab PO AM 10/03/08 07/31/23 History blood-glucose meter (Advanced #1 ea 01/15/21 07/21/23 Rx Glucose Meter) lancets 30 gauge (1st Tier Unilet #100 ea 01/15/21 07/21/23 Rx ComforTouch Lancet) blood sugar diagnostic (Advanced #100 ea 01/31/21 07/21/23 Rx Glucose Meter Test Strips) omeprazole 20 mg tablet,delayed 20 mg PO DAILY #90 tabs 09/24/21 07/31/23 Rx release simvastatin 40 mg tablet 40 mg PO DAILY #90 tabs 09/27/21 07/31/23 Rx chlorthalidone 25 mg tablet 25 mg PO DAILY #30 tab-caps 04/24/22 07/31/23 Rx losartan 100 mg tablet 100 mg PO DAILY #90 tab-caps 09/23/22 07/31/23 Rx empagliflozin 10 mg tablet 10 mg PO DAILY 11/26/22 07/31/23 History (Jardiance) fluticasone propionate 50 2 spray NS DAILY PRN allergic 03/26/23 07/31/23 Rx mcg/actuation nasal rhinitis #15.8 mL spray,suspension bisacodyl 5 mg tablet,delayed 5 mg PO ONCE Colonoscopy Bowel 06/09/23 07/31/23 Rx release Prep #4 tabs polyethylene glycol 3350 17 238 g PO ONCE #238 grams 06/09/23 07/31/23 Rx gram/dose oral powder acetaminophen 500 mg tablet 1,000 mg (2 x 500 mg) PO TID #90 07/23/23 07/31/23 Rx tabs hydrocodone 5 mg-acetaminophen 325 1 tab PO Q6H PRN pain #4 tabs 07/23/23 07/31/23 Rx mg tablet ibuprofen 600 mg tablet 600 mg PO TID PRN pain #90 tabs 07/23/23 07/31/23 Rx hydrocodone 5 mg-acetaminophen 325 1 tab PO Q6H PRN severe pain #4 07/31/23 Rx mg tablet tabs Exam Resp Effort & Inspection: normal respiratory effort and able to speak in complete sentences Auscultation: clear to auscultation bilaterally Cardio Rate: regular rate Rhythm: regular rhythm Results Last Vital Signs Temp 36.1 C L 07/31/23 06:18 Pulse 83 07/31/23 06:18 Resp 16 07/31/23 06:18 Pulse Ox 96 07/31/23 06:18
[2023-07-31] MEDS: ceFAZolin 2 GM/50 ML BAG IVPB (07:32)
[2023-07-31] MEDS: Lidocaine 1% Multi-Dose W/EPI 1/100,000 50 ML VIAL (07:40)
[2023-07-31 07:51] VITALS: BP 103/75; PULSE 87; RESP 16; TEMP 36.2; O2SAT 97
--- NOTE | 2023-07-31 07:54 | W.ANESPOSTOP ---
Postoperative Evaluation Date, Time and Location Date Performed: 07/31/23 Time Performed: 07:54 Patient Location: Day Surgery Unit Vital Signs Most Recent Imported Vital Signs: Most Recent Vital Signs Temp Pulse Resp Pulse Ox 36.1 C L 83 16 96 07/31/23 06:18 07/31/23 06:18 07/31/23 06:18 07/31/23 06:18 Pain Score Most Recent Pain Score: Most Recent Pain Score Pain Level 0 07/31/23 06:18 Assessment Mental Status: Awake (Alert & Oriented to Patient Baseline) Airway and Respiratory Function: Patent airway with normal (patient baseline) respiratory exam Cardiovascular Function: Hemodynamically Stable Hydration Status: Adequately Hydrated Nausea & Vomiting: No Nausea or Vomiting Pain: Pt. Denies Any Pain Peripheral Nerve Block: Patient did not receive a nerve block
[2023-07-31 08:19] VITALS: BP 123/79; PULSE 82; RESP 18; TEMP 36.2; O2SAT 100
--- NOTE | 2023-07-31 09:14 | ROE_ITS ---
Date of service: 07/31/23 Time of Service: 07:30 Operative Note Operative Note DATE OF PROCEDURE: 07/31/23 PRE-OP DIAGNOSIS: Left Carpal Tunnel Syndrome POST-OP DIAGNOSIS: same PROCEDURE: Left Endoscopic Carpal Tunnel Release SURGEON: Patrick Jones ANESTHESIA TYPE: General:No Airway Refer to Anesthesia Record ESTIMATED BLOOD LOSS: 0 PATHOLOGY: none sent TOURNIQUET TIME: 5 COMPLICATIONS: None Patient was transported to: same day Patient's condition: stable Indications: I have seen Logan in clinic for symptoms of carpal tunnel syndrome. The numbness, tingling, and pain limited function. Clinical exam findings with nerve conduction tests confirmed the diagnosis of carpal tunnel syndrome. Nonoperative measures such as bracing, time, activity modifications had been tried but disability and pain persisted. I discussed carpal tunnel release with the patient. I reviewed the risks of the procedure to include, but not limited to, bleeding, infection, pain, stiffness, incomplete release, damage to nerves or vessels, persistent numbness, recurrence. Despite these risks, the patient elected to proceed. Findings: There was tightened carpal tunnel. This was dilated and released successfully with the endoscopic with increased space within the tunnel. The antebrachial fascia was released proximally freeing the median nerve at the wrist. Procedure Description: Logan was greeted in the preoperative holding area where the correct side was identified and marked. The consent was reviewed with the patient and signed. The history and physical was updated. All questions were answered. Logan was taken back to the operating room. The patient was placed into the supine position on the operating room table with the left arm on an arm board. A nonsterile tourniquet was placed high onto the arm. All bony prominences were well padded. Prophylactic antibiotics in the form of Cefazolin were administered. The left arm was then prepped with Chloraprep and draped in a standard fashion with stockinette and extremity drape. A timeout to confirm correct identity, side and site, procedure, allergies, anesthesia, and medical concerns was performed. The surgical site was marked in the volar wrist creases in line with the radial border of the fourth ray. This area was anesthetized with approximately 6cc of 1% Lidocaine. The limb was then exsanguinated with an Esmarch. The skin was incised with a 15 blade, approximately 1cm. The skin only was cut and the deeper tissue was dissected bluntly with a tenotomy scissor, avoiding passing nerve and venous structures. The fascia was penetrated and opened bluntly. A two-prong skin hook was placed under this proximal fascial edge. A series of hamate finders were used to identify and dilate the carpal tunnel. Synovial elevator was used to free synovial attachments to the underside of the transverse carpal ligament. My thumb was kept in the palm to myron the distal extent of the carpal tunnel and correctly position the hand. The Microaire endoscope was inserted without difficulty and without resistance. Excellent visualization showed horizontally running fibers of the transverse carpal ligament (TCL). The distal extent of the TCL was visualized and the end of the scope palpated with the thumb. The blade was elevated and withdrawn from distal to proximal. The TCL was split into two flaps. The endoscope was reinserted to confirm complete release and any remnant ligament was incised. The scope was withdrawn and the proximal aspect of the carpal tunnel was grossly inspected and appeared release with the median nerve visible. The antebrachial fascia at the level of the wrist was then freed from the overlying skin and then the underlying median nerve with blunt dissection. This was transected longitudinally for about 3cm proximal to the wrist incision. The wound was then irrigated with easy flow of irrigant distally and proximally. The incision was closed with a single 4-0 Nylon suture. The wound was dressed w ith Xeroform, Gauze, Kerlix and Richard. The tourniquet was deflated with the initial dressing and held with some pressure. Blood flow returned easily to all digits with capillary refill less than 2 seconds. The patient tolerated the procedure well and was returned to the Same Day Surgery area in a stable condition suffering no known complication.
== END 2023-07-31 08:50 | disposition home or self-care (01) ==
PROVIDERS: PCP Physician Assistant Medical; Visit Provider Student in an Organized Health Care Education/Training Program
PROC: 01N54ZZ Release Median Nerve, Percutaneous Endoscopic Approach (ICD-10-PCS; CPT 29848; principal; 2023-07-31 07:30)
DX: G56.02 Carpal tunnel syndrome, left upper limb (principal)
CPT/HCPCS: 29848; J0131; J0690; J1885; J2001

== ENCOUNTER 2023-08-27 15:58 | Outpatient (REF) | payer BC, SELFPAY ==
[2023-08-27 20:42] LABS: Hemoglobin A1C 6.6 % (<5.7)
[2023-08-27 20:47] LABS: ALT 40 U/L (16-63); Albumin 4.1 g/dL (3.4-5.0); Alkaline Phosphatase 67 U/L (46-116); Anion Gap 8.4 mmol/L (3-11); BUN 25 mg/dL (7-18); Bilirubin, Total 0.2 mg/dL (0.2-1.0); CO2 28.6 mmol/L (21.0-32.0); CREATININE 1.1 mg/dL (0.70-1.30); Chloride 101 mmol/L (98-107); Cholesterol 192 mg/dL (<200); Estimated GFR 83.32 (mL/min/1.73m2); Glucose 220 mg/dL (74-106); HDL Cholesterol 43 mg/dL (40-60); Potassium 3.4 mmol/L (3.5-5.1); Sodium 138 mmol/L (136-145); Total Protein 7.7 g/dL (6.4-8.2); Triglyceride 435 mg/dL (<150)
[2023-08-27 21:17] LABS: AST 16 U/L (15-37)
[2023-08-27 21:20] LABS: LDL CHOLESTEROL 104 mg/dL (<100)
== END 2023-08-27 15:59 | disposition home or self-care (01) ==
LOC: NCHCN 15:58
PROVIDERS: PCP Physician Assistant Medical; Visit Provider Physician Assistant Medical
DX: E11.9 Type 2 diabetes mellitus without complications (principal); E78.5 Hyperlipidemia, unspecified
CPT/HCPCS: 80053; 80061; 83721; 83036

== ENCOUNTER 2023-10-28 22:42 | Outpatient (REF) | payer BC, SELFPAY ==
[2023-10-28 15:50] LABS: Abs Immature Grans 0.03 10^3/uL (0.0-0.06); Absolute Basophil Count 0.08 10^3/uL (0.0-0.2); Absolute Eosinophil Count 0.12 10^3/uL (0.0-0.7); Absolute Lymphocyte Count 2.13 10^3/uL (1.2-3.4); Absolute Monocyte Count 0.67 10^3/uL (0.1-0.8); Absolute Neutrophil Count 4.83 10^3/uL (1.2-6.7); Eosinophils % 1.5; HCT 42.1 % (40.0-50.0); HGB 14.2 g/dL (13.5-17.5); Immature Grans % 0.4; Lymphocytes % 27.1; MCH 30.2 pg (27.0-33.0); MCHC 33.7 % (32.0-36.0); MCV 90 fL (80-95); MPV 11.6 fL (8.0-11.0); Monocytes % 8.5; Neutrophils % 61.5; Platelet Count 197 10^3/uL (130-400); RDW 13.4 % (11.8-14.1); RDW-SD 44.3 fL; WBC 7.86 10^3/uL (4.4-10.8)
[2023-10-28 16:28] LABS: Anion Gap 13.4 mmol/L (3-11); BUN 18 mg/dL (7-18); CO2 24.6 mmol/L (21.0-32.0); CREATININE 0.8 mg/dL (0.70-1.30); Calcium 10.2 mg/dL (8.5-10.1); Calculated LDL 114 mg/dL (<100); Chloride 98 mmol/L (98-107); Cholesterol 192 mg/dL (<200); Estimated GFR 109.17 (mL/min/1.73m2); Glucose 102 mg/dL (74-106); HDL Cholesterol 53 mg/dL (40-60); Magnesium 1.8 mg/dL (1.8-2.4); Potassium 3.4 mmol/L (3.5-5.1); Sodium 136 mmol/L (136-145); Triglyceride 125 mg/dL (<150); Vitamin B12 494 pg/mL (193-986)
== END 2023-10-28 22:43 | disposition home or self-care (01) ==
LOC: NCHCN 22:42
PROVIDERS: PCP Physician Assistant Medical; Referring Provider Physician Assistant Medical; Visit Provider Physician Assistant Medical
DX: I10 Essential (primary) hypertension (principal); G62.9 Polyneuropathy, unspecified
CPT/HCPCS: 80048; 80061; 82607; 83735; 85025

== ENCOUNTER 2024-01-02 08:02 | Day surgery (SDC) | payer BC, SELFPAY ==
--- NOTE | 2024-01-01 23:34 | COLE_ITS ---
Date of service: 01/02/24 Time of Service: 10:53 Colonoscopy Report Date of procedure: 01/02/24 Pre-op diagnosis general: Colorectal cancer screening Post-op diagnosis procedure note: other (Diverticula and adenomatous polyps) Surgeon: Val Shrestha Anesthesia Type: General:No Airway Estimated blood loss (mL): 1 Pathology: other Complications: None Disposition: same day Prep: Miralax/Dulcolax Retraction Time: 13 Procedure Description: After informed consent was obtained the patient was taken to the procedure room and placed in a left decubitous position. Monitors were applied and a time out was done. The patients name, date of , procedure, allergies to medications and metal in their body was reviewed. The patient was then sedated. Once sedated and comfortable a rectal exam was done. External exam was normal. Internal exam revealed a normal sphincter tone and no palpable masses. The prostate is enlarged. The scope was then introduced and retrofelexed. Grade 1 internal hemorrhoids were identified. The scope was then advanced to the cecum out difficulty. The TI and appendiceal orifice were identified. . The scope was then slowly retracted over 13 minutes back into the rectum. He had a flat 5 mm polyp in the rectum that is removed with a cold biopsy forcep. He also has a .75cm pedunculated polyp in the rectum that is removed with cold biopsy snare. All specimen was retrieved and no bleeding is noted. He has moderate diverticula that do extend all the way to the transverse colon. There is no signs of active bleeding or infection. Mucosa is otherwise pink and healthy with a normal v ascular pattern. The scope was removed and the patient was woken up and taken back to Same day surgery in stable condition. The patient tolerated the procedure well and there were no immediate compl ications. Follow up: The patient should follow up in 5-7 years, path pending, unless they develop changes in bowel habits or other new gastrointestinal complaints.
--- NOTE | 2024-01-01 23:35 | PDOC.DSDIS_ITS ---
Date of service: 01/02/24 Time of Service: 10:50 Discharge Plan Disposition Patient Disposition: Home Condition: Good Discharge Details Reason For Visit: Colon cancer screening Attending Provider: Val Shrestha Primary Care Provider: Rita Rae Home Meds and New Rx's Prescriptions: Continued (DME) blood-glucose meter [Advanced Glucose Meter] Misc See Rx Instructions .ROUTE .MEDSUPPLY Qty: 1 0RF Rx Instructions: As directed (DME) lancets [1st Tier Unilet ComforTouch] 30 gauge misc See Rx Instructions .ROUTE .MEDSUPPLY Qty: 100 0RF Rx Instructions: Daily omeprazole 20 mg tablet,delayed release (DR/EC) 20 mg PO DAILY Qty: 90 2RF ONE-A-DAY MEN'S 1 TAB tablet 1 tab PO AM (DME) Advanced Gluc Meter Test Strip Strip See Rx Instructions .ROUTE .MEDSUPPLY Qty: 100 4RF Rx Instructions: Daily simvastatin 40 mg tablet 40 mg PO DAILY Qty: 90 3RF chlorthalidone 25 mg tablet 25 mg PO DAILY Qty: 30 0RF losartan 100 mg tablet 100 mg PO DAILY Qty: 90 3RF Jardiance 10 mg tablet 10 mg PO DAILY fluticasone propionate 50 mcg/actuation spray,suspension 2 spray NS DAILY PRN (Reason: allergic rhinitis) Qty: 15.8 5RF Discontinued bisacodyl 5 mg tablet,delayed release (DR/EC) 5 mg PO ONCE Qty: 4 0RF Rx Instructions: Per Colonoscopy bowel prep instructions polyethylene glycol 3350 17 gram/dose powder 238 g PO ONCE Qty: 238 0RF Rx Instructions: For Colonoscopy bowel prep, as directed by office Discharge Instructions Additional Instructions: DSU Colonoscopy Post- Op Instructions Instructions for Everyone who is given Anesthesia: For your safety, please do the following for the next twenty-four (24) hours: *Do Not operate a motor vehicle (car, truck, motorcycle, etc.) *Do Not drink alcoholic beverages or use any recreational drugs for the first 24 hours or while taking pain medications. The medications in your body may have a reaction that can be dangerous. *Do Not make any important decisions or sign any important papers. Findings: X 2 colon polyp Diverticula Follow up: -My office will send you a letter in 3 to 4 weeks time with the results of the pathology and when we want you to repeat the colonoscopy, most likely 5 years time. -Make sure you are moving your bowels on a regular basis and not straining to go to the bathroom. You want to follow a high-fiber diet, mostly plant-based diet with no more than 2 servings of red meat a week. If you find you are having issues with constipation or straining, then we recommend you start a fiber product such as Metamucil. 1. No lifting over 20 pounds or strenuous activity for the first 24 hours after your procedure. After 24 hours there are no restrictions on your activity but you may feel fatigued for a few days. 2. After you arrive home you may have a light meal and return to your normal diet as you can tolerate it without feeling sick to your stomach. 3. You may have a bloated, gaseous feeling in your belly (abdomen) after a colonoscopy. Passing gas and belching will help. Walking or lying down on your left side with your knees flexed may relieve the discomfort. Call the office at [phone] (Office) or [phone] (Hospital) right away if you notice any of the following: a.Vomiting of blood or ?coffee ground stools?. b.Rectal bleeding 1Tbsp, blood clots or continuous bleeding. c.Severe belly (abdominal) pain. d.A hard distended belly (abdomen) and an inability to pass gas. 4. Please don?t expect to have a normal BM (bowel movement) for 2-3 days after your procedure. 5. If there are questions regarding the findings of your procedure, please contact your doctor 6. If you are unable to contact your doctor with a problem, contact the hospital at [phone]. 7. Continue all your regular medications unless directed otherwise. I understand the above instructions and have no questions. Signature of Patient or Adult Escort Name of Responsible Adult Escort Signature of Nurse Date/Time Stand Alone Forms: Anesthesia Discharge Kandice., Sushila Ma (DSU) Activity:: See above Diet:: See above Discharge Orders Discharge Orders: Discharge Order (Routine); Ordered 01/02/24 Ordered By: Val Shrestha DS: Diagnosis Discharge Diagnosis (1) Essential hypertension: Status: Chronic (2) Hyperlipidemia associated with type 2 diabetes mellitus: Status: Acute (3) Diabetes: Status: Chronic (4) Obesity due to excess calories: Status: Acute (5) Allergic rhinitis: Status: Acute (6) Gastroesophageal reflux disease without esophagitis: Status: Chronic (7) Epigastric pain: Status: Acute (8) Screening for malignant neoplasm of colon performed: Status: Acute Asessment and Plan: The patient is seen and examined after their colonoscopy.? The patient has been able to pass gas.? They are not having abdominal pain.? They have been able to tolerate liquids and a snack.? They do not have any nausea or vomiting.? They are not having any chest pain or shortness of breath.??? They are not having any rectal bleeding. Their vital signs have been stable-see nursing notes. We discussed findings during their colonoscopy, and any biopsies that were done/polyps that were removed. The patient will be sent a letter with any biopsy results, and when to repeat the colonoscopy.-see discharge instructions. Patient was given explicit instructions to follow-up regarding colonoscopy-refer to discharge instructions.? We reviewed resumption of medications. Patient verbalized understanding and discharged in stable and satisfactory condition- See nursing notes.
[2024-01-02 08:29] VITALS: BP 148/88; PULSE 80; RESP 18; TEMP 36.8; O2SAT 97
[2024-01-02] MEDS: Lactated Ringers 1,000 ML 80 ML IV (08:45)
--- NOTE | 2024-01-02 08:59 | W.ANESPRE ---
General Info Date of Service Date Performed: 01/02/24 Height: 5 ft 6 in Weight: 113.8 kg Body Mass Index (BMI): 40.4 Surgical Procedure: Operation Date: 01/02/24 09:05 Proposed Procedure Side Surgeon dora Shrestha, Meds Allergies and Home Medications Allergies Allergy/AdvReac Type Severity Reaction Status Date / Time No Known Allergies Allergy Verified 01/02/24 08:26 Home Medication Medication Instructions Recorded One-A-Day Men's 1 tab PO AM 10/03/08 blood-glucose meter (Advanced #1 ea 01/15/21 Glucose Meter) lancets 30 gauge (1st Tier Unilet #100 ea 01/15/21 ComforTouch Lancet) blood sugar diagnostic (Advanced #100 ea 01/31/21 Glucose Meter Test Strips) omeprazole 20 mg tablet,delayed 20 mg PO DAILY #90 tabs 09/24/21 release simvastatin 40 mg tablet 40 mg PO DAILY #90 tabs 09/27/21 chlorthalidone 25 mg tablet 25 mg PO DAILY #30 tab-caps 04/24/22 losartan 100 mg tablet 100 mg PO DAILY #90 tab-caps 09/23/22 empagliflozin 10 mg tablet 10 mg PO DAILY 11/26/22 (Jardiance) fluticasone propionate 50 2 spray NS DAILY PRN allergic 03/26/23 mcg/actuation nasal rhinitis #15.8 mL spray,suspension Current Visit Medications: Current Medications Generic Name Dose Route Start Last Admin Trade Name Freq PRN Reason Stop Dose Admin Hyoscyamine Sulfate 0.125 mg 01/02/24 11:32 Hyoscyamine 0.125 Mg Sl/Oral/Chew SL 02/01/24 11:31 DIRECTED PRN Ringer's Solution 1,000 mls @ 80 mls/hr 01/02/24 06:00 01/02/24 08:45 IV 01/02/24 23:59 80 mls/hr INFUSION VAIBHAV Administration IV Miscellaneous Supplies 1 each 01/02/24 06:00 Iv Access IV 01/02/24 23:59 DIRECTED VAIBHAV Ondansetron HCl 4 mg 01/02/24 11:32 Ondansetron 4 Mg/2 Ml Vial IVP 02/01/24 11:31 Q4H PRN PRN Nausea / Vomiting Sodium Chloride 0 ml 01/02/24 06:00 Normal Saline Flush 10 Ml Syr IV 01/02/24 23:59 PRN PRN Sodium Chloride 0 ml 01/02/24 06:00 Normal Saline 10 Ml Vial IJ 01/02/24 23:59 DIRECTED PRN Sterile Water 0 ml 01/02/24 06:00 Water,Injection,Sterile 10 Ml Vial IJ 01/02/24 23:59 DIRECTED PRN PFSH Active Problems Active Problems: Problem Status Onset Code Screening for malignant neoplasm of colon performed Z12.11 Left carpal tunnel syndrome G56.02 Right carpal tunnel syndrome G56.01 Traumatic partial tear of right biceps tendon S46.211A Laceration of right middle finger S61.212A Tendinitis of long head of biceps brachii of both shoulders M75.21, M75.22 Peripheral neuralgia 03/31/12 M79.2 Gastroesophageal reflux disease without esophagitis 08/10/15 K21.9 Essential hypertension 08/03/13 I10 Achilles tendinitis of both lower extremities M76.61, M76.62 Epigastric pain R10.13 Obesity due to excess calories E66.09 Allergic rhinitis J30.9 Diabetes E11.9 Hyperlipidemia associated with type 2 diabetes mellitus E11.69, E78.5 Medical History Medical History Hypertension GERD (gastroesophageal reflux disease) Type 2 diabetes mellitus Decreased hearing of left ear Hyperlipidemia Muscle cramps Sore throat Pain in left shoulder Bilateral carpal tunnel syndrome Surgical History Surgical History History of carpal tunnel release Repair of inguinal hernia (~2008) RIGHT Tobacco Smoking/Tobacco Use Status: Former Tobacco Use Passive smoking exposure: Yes Second hand exposure: Yes Alcohol Alcohol Intake: current Alcohol intake frequency: 3 or more drinks per day Alcohol type: beer Substance Use Substance use: Never Substance use type: does not use Vital Signs and Lab Results Vital Signs Most Recent Vital Signs in EMR: Most Recent Vital Signs Temp Pulse Resp BP Pulse Ox 36.8 C 80 18 148/88 H 97 01/02/24 08:29 01/02/24 08:29 01/02/24 08:29 01/02/24 08:29 01/02/24 08:29 Point of Care Results Point of Care Results: Finger Stick Blood Glucose 135 01/02/24 08:19 Lab Results Blood Type / Crossmatch: No Data to Display Complete Blood Count: No Data to Display Complete Metabolic Panel: No Data to Display Liver Function Panel: No Data to Display Coagulation Panel: No Data to Display Cardiac Panel: No Data to Display Arterial Blood Gas: No Data to Display Venous Blood Gas: No Data to Display Pancreas Panel: No Data to Display Thyroid Panel: No Data to Display Infectious Disease: No Data to Display Blood Cultures: No Data to Display Toxicology Panel: No Data to Display Anesthesia Assessment and Plan Anesthesia History Personal History: No History of Anesthesia Complications Family History: No Family History of Anesthesia Complications Exercise Tolerance Exercise Tolerance: Metabolic Equivalents>4 Pertinent Negatives Pertinent Negatives: No Symptoms of GERD Cardiac & Pulmonary Exam Cardiac Exam: Normal S1/S2 Heart Sounds Pulmonary Exam: Clear Bilateral Breath Sounds Implantable Cardiac Device Does patient have a Pacemaker or an ICD?: No Airway Exam Known Difficult Airway: No Mallampati Class: 3 Mouth Opening: Normal (> 3cm) Thyromental Distance: Greater than 3 cm Neck Range of Motion: Limited ROM Neck Circumference: Thick Teeth Condition: Generalized Poor Dentition ASA Classification ASA Score: ASA 2 Emergency Case?: No NPO Status NPO Status: NPO Clears >2 hours, Solids >8 hours Anesthesia Plan Resuscitation Status: Full Code Anesthesia Technique: General Anesthesia Airway Planned: Natural Airway Monitors Used: Standard Monitors
[2024-01-02 09:00] VITALS: BMI 40.4
--- NOTE | 2024-01-02 09:14 | BOWEL_PTH ---
PATIENT: Logan Garcai LOC: [facility] U#:[id number] AGE/SX: 48/M ROOM: RE01/02/[address]: Val Shrestha : 1975 BED: DIS: 01/02/2024 SPEC #: [id number] RECD: 01/02/24 12:41 STATUS: ANNE RE #: [id number] BRAD: 01/02/24 09:[address]: Val Shrestha DEPT: Surgical Specimen RECD BY: Kasey Erickson ENTERED: 01/02/24 12:42 SP TYPE: Bowel OTHR DR: Rita Rae Tissues: 1 - BIOPSY BOWEL 2 - BIOPSY BOWEL Procedures: GROSS AND MICRO LEVEL 4 Comments: [id number]
[2024-01-02 09:45] VITALS: BP 107/62; PULSE 75; RESP 18; TEMP 36.2; O2SAT 96
--- NOTE | 2024-01-02 09:56 | W.ANESPOSTOP ---
Postoperative Evaluation Date, Time and Location Date Performed: 01/02/24 Time Performed: 09:56 Patient Location: Day Surgery Unit Vital Signs Most Recent Imported Vital Signs: Most Recent Vital Signs Temp Pulse Resp BP Pulse Ox 36.2 C L 75 18 107/62 96 01/02/24 09:45 01/02/24 09:45 01/02/24 09:45 01/02/24 09:45 01/02/24 09:45 Pain Score Most Recent Pain Score: Most Recent Pain Score Pain Level 0 01/02/24 08:29 Assessment Mental Status: Awake (Alert & Oriented to Patient Baseline) Airway and Respiratory Function: Patent airway with normal (patient baseline) respiratory exam Cardiovascular Function: Hemodynamically Stable Hydration Status: Adequately Hydrated Nausea & Vomiting: No Nausea or Vomiting Pain: Pt. Denies Any Pain Peripheral Nerve Block: Patient did not receive a nerve block
[2024-01-02 10:15] VITALS: BP 136/81; PULSE 80; RESP 19; TEMP 36.6; O2SAT 98
== END 2024-01-02 10:58 | disposition home or self-care (01) ==
LOC: SUR 08:02
PROVIDERS: PCP Physician Assistant Medical; Visit Provider Surgery
PROC: 0DJD8ZZ Inspection of Lower Intestinal Tract, Via Natural or Artificial Opening Endoscopic (ICD-10-PCS; CPT 45378; principal; 2024-01-02 09:00)
DX: I10 Essential (primary) hypertension (principal); K64.0 First degree hemorrhoids; Z12.11 Encounter for screening for malignant neoplasm of colon; K63.5 Polyp of colon; K57.30 Diverticulosis of large intestine without perforation or abscess without bleeding; K62.1 Rectal polyp
CPT/HCPCS: 45385; 45380; 88305; J2001; J2704

== ENCOUNTER 2024-08-24 18:24 | Outpatient (REF) | payer BC, SELFPAY ==
--- OUTSIDE RECORDS SUMMARY | 2024-08-24 18:26 | XMS_ITS | Encounter Summary ---
Author Organization [facility] Address [address] [place] [address] Care Team Providers Care Tank Car Repairer Name Role Phone Unknown, Provider Primary Care Provider Unava ilable Encounter Details Date Type Department Care Team (Late st Contact Info) Description 01/02/2024 Lab Requisition [facility] [address] [place] [address] Val Shrestha, DO [address] [place] [address] Gastro-esophageal reflux disease without esophagitis; Encounter for screening for malignant neoplasm of colon Social History Tobacco Use Types Packs/Day Years Used Date Smoking Tobacco: Never Assessed Sex and Gender Information Value Date Recorded Sex Assigned at Not on file Legal Sex Male 18:28 EDT Gender Identity Not on file Sexual Orientation Not on file documented as of this encounter Plan of Treatment Not on file documented as of this encounter Procedures Procedure Name Priority Date/Time Associated Diagnosis Comments SURGICAL PATHOLOGY Today 01/02/2024 9:14 EDT Gastro-esophageal reflux disease without esophagitis Encounter for screening for malignant neoplasm of colon documented in this encounter Results * SURGICAL PATHOLOGY (01/02/2024 9:14 EDT) Note to Patient The following pathology results have been interpreted by your pathologist and may be available to you before your health provider has had the opportunity to review them. Please allow time for your provider to receive these results and explore management options, if applicable. 01/05/2024 11:28 EDT [facility] Final Diagnosis A. COLON, 75 CM, POLYP, BIOPSY: - Hyperplastic polyp. B. RECTUM, POLYP X2, BIOPSIES: - Hyperplastic polyps. 01/05/2024 11:28 [facility] Attestation By the signature below, the attending physician certifies that they have 1) personally conducted a gross and/or microscopic examination of the described specimen(s), and/or personally interpreted the results of laboratory testing of the described specimen(s), and 2) personally rendered or confirmed the above diagnosis. 01/05/2024 11:28 [facility] at 1128 Clinical History Screening colonoscopy, internal hemorrhoids, diverticula, polyp 01/05/2024 11:28 [facility] Gross Description A. Received in formalin labelled with proper patient identification (initials W, J) and 1. Polyp @ 75 cm x 3 are 3 de guzman tissues (0.7 x 0.1 x 0.1 cm to 0.4 x 0.2 x 0.1 cm). Entirely submitted in A1. B. Received in formalin labelled with proper patient identification (initials W, J) and 2. Rectal polyp x2 is a de guzman-brown polypoid tissue (0.6 x 0.5 x 0.4 cm). Received in the same specimen container are 2 de guzman tissues (0.2 x 0.1 x 0.1 cm and 0.1 x 0.1 x 0.1 cm). The polypoid tissue is bisected and entirely submitted in B1 and the remaining tissues are entirely submitted in B2. Please note the smallest tissue may not survive processing. Molly Caceres 01/03/2024 12:30 01/05/2024 11:28 [facility] Performing Lab [facility] 01/05/2024 11:28 [facility] Scanned Images 01/05/2024 11:28 [facility] Tissue SPECIMEN FROM RECTUM / Unknown 01/02/2024 9:14 EDT 01/02/2024 18:31 EDT Tissue specimen (specimen) SPECIMEN FROM RECTUM / Unknown 01/02/2024 9:14 EDT 01/02/2024 18:31 EDT us Val Shrestha DO PATHOLOGY ORDERABLES Final Re sult [facility] [address] [place] [address] documented in this encounter Visit Diagnoses Diagnosis Gastro-esophageal reflux disease without esophagitis Esophageal reflux Encounter for screening for malignant neoplasm of colon Special screening for malignant neoplasms, colon documented in this encounter Care Teams Tank Car Repairer Relationship Specialty Start Date End Date Unknown, Provider, PCP - General 12/03/23 documented as of this encounter
--- OUTSIDE RECORDS SUMMARY | 2024-08-24 18:26 | XMS_ITS | Referral Summary ---
Author Organization [facility] Address [address] [place] [address] Care Team Providers Care Carbon Cutter Name Role Phone Unknown, Provider Primary Care Provider Unava ilable Social History Tobacco Use Types Packs/Day Years Used Date Smoking Tobacco: Never Assessed Sex and Gender Information Value Date Recorded Sex Assigned at Not on file Legal Sex Male 18:28 EDT Gender Identity Not on file Sexual Orientation Not on file Plan of Treatment Not on file Insurance [facility] Address: [address] [id number] Care Teams Carbon Cutter Relationship Specialty Start Date End Date Unknown, Provider, PCP - General 12/03/23
--- OUTSIDE RECORDS SUMMARY | 2024-08-24 18:26 | XMS_ITS | Clinical Summary ---
Author Organization [facility] Address [address] [place] [address] Care Team Providers Care Vp Name Role Phone Unknown, Provider Primary Care Provider Unava ilable Social History Tobacco Use Types Packs/Day Years Used Date Smoking Tobacco: Never Assessed Sex and Gender Information Value Date Recorded Sex Assigned at Not on file Legal Sex Male 18:28 EDT Gender Identity Not on file Sexual Orientation Not on file Plan of Treatment Health Maintenance Due Date Last Done Comments Hepatitis C Screen 1975 Hepatitis B Vaccine (1 of 3 - 19+ 3-dose series) 09/19 COVID-19 Vaccine (2023- season) 2024 Insurance [facility] Care Teams Vp Relationship Specialty Start Date End Date Unknown, Provider, PCP - General 12/03/23
[2024-08-24 19:33] LABS: ALT 31 U/L (16-63); Albumin 4.5 g/dL (3.4-5.0); Alkaline Phosphatase 71 U/L (46-116); BUN 22 mg/dL (7-18); Bilirubin, Total 0.34 mg/dL (0.2-1.0); CREATININE 0.8 mg/dL (0.70-1.30); Calcium 10.2 mg/dL (8.5-10.1); Calculated LDL 129 mg/dL (<100); Chloride 102 mmol/L (98-107); Cholesterol 212 mg/dL (<200); Estimated GFR 109.17 (mL/min/1.73m2); Glucose 125 mg/dL (74-106); HDL Cholesterol 54 mg/dL (40-60); Hemoglobin A1C 6.8 % (<5.7); Potassium 4.5 mmol/L (3.5-5.1); Sodium 140 mmol/L (136-145); Total Protein 7.6 g/dL (6.4-8.2); Triglyceride 148 mg/dL (<150)
[2024-08-24 19:43] LABS: AST 20 U/L (15-37)
== END 2024-08-24 18:25 | disposition home or self-care (01) ==
LOC: NCHCN 18:24
PROVIDERS: PCP Physician Assistant Medical; Visit Provider Physician Assistant Medical
DX: E11.9 Type 2 diabetes mellitus without complications (principal); E78.5 Hyperlipidemia, unspecified
CPT/HCPCS: 80053; 80061; 83036

== ENCOUNTER 2024-09-09 00:57 | Outpatient (CLI) | payer BC, SELFPAY ==
--- NOTE | 2024-09-09 07:30 | DI.RAD_ITS ---
Exam(s) XR FOOT RT COMPLETE EXAM: XR FOOT RT COMPLETE CLINICAL HISTORY: Right foot pain,m79.671. TECHNIQUE: 2D digital imaging was performed. Three views. COMPARISON: No exams were available for comparison FINDINGS: BONES: No acute fracture is present. No bony destructive lesion is seen. Heel spurs. JOINTS: No dislocation present. First MTP joint space is maintained. There is pzio-ii-qpmlonfs angelica articular spurring. Mild hallux valgus. There is prominent spurring noted at the lateral sesamoid. There is a bipartite medial sesamoid. SOFT TISSUE: Normal. IMPRESSION: Degenerative changes, greatest at the lateral sesamoid and 1st MTP joint. Heel spurs. DATA REPOSITORY: RADIATION DOSE DELIVERED:
== END 2024-09-09 01:17 ==
LOC: DI 00:58
PROVIDERS: PCP Physician Assistant Medical; Visit Provider Podiatrist
DX: M79.671 Pain in right foot (principal)
CPT/HCPCS: 73630

== ENCOUNTER 2024-11-10 18:58 | Outpatient (REF) | payer BC, SELFPAY ==
[2024-11-10 19:11] LABS: ALT 35 U/L (16-63); AST 28 U/L (15-37); Albumin 4.5 g/dL (3.4-5.0); Alkaline Phosphatase 84 U/L (46-116); Anion Gap 9.8 mmol/L (3-11); BUN 19 mg/dL (7-18); Bilirubin, Total 0.5 mg/dL (0.2-1.0); CO2 28.2 mmol/L (21.0-32.0); CREATININE 0.8 mg/dL (0.70-1.30); Calcium 10.2 mg/dL (8.5-10.1); Calculated LDL 94 mg/dL (<100); Chloride 100 mmol/L (98-107); Cholesterol 167 mg/dL (<200); Estimated GFR 108.49 (mL/min/1.73m2); Glucose 109 mg/dL (74-106); HDL Cholesterol 55 mg/dL (>or=40); Sodium 138 mmol/L (136-145); Triglyceride 93 mg/dL (<150)
== END 2024-11-10 18:59 | disposition home or self-care (01) ==
LOC: NCHCN 18:58
PROVIDERS: PCP Physician Assistant Medical; Visit Provider Physician Assistant Medical
DX: E78.5 Hyperlipidemia, unspecified (principal); E11.9 Type 2 diabetes mellitus without complications
CPT/HCPCS: 80053; 80061; 83036

== ENCOUNTER 2024-11-23 02:44 | Outpatient (CLI) | payer BC, SELFPAY ==
--- NOTE | 2024-11-23 | DI.RAD_ITS ---
Exam(s) XR LUMBAR SPINE COMPLETE EXAM: XR LUMBAR SPINE COMPLETE CLINICAL HISTORY: NEUROPATHY, G62.9 POLYNEUROPATHY UNSPECIFIED. TECHNIQUE: 2D digital imaging was performed of the lumbar spine. Five images were obtained. AP, la teral, right oblique, left oblique and L5-S1 spot views were obtained. COMPARISON: MR MRI - LUMBAR SPINE WO CONTRAST from 04/02/2012 FINDINGS: BONES: No fracture or destructive lesion. Endplate osteophytes are seen at multiple levels of the lum bar spine. No facet hypertrophy identified. There are degenerative changes seen in the sacroiliac adriano ints, right greater than left. No ankylosis or erosions are seen. There is stable mild anterior wed ging of T12. DISKS: Intervertebral disc spaces are maintained. ALIGNMENT: Lumbar spinal alignment is within normal limits. No spondylolysis or spondylolisthesis. SOFT TISSUE: Normal. IMPRESSION: Mild degenerative changes seen in the lumbar spine. If there are radicular concerns, an MRI should b e considered for further evaluation. DATA REPOSITORY: RADIATION DOSE DELIVERED:
== END 2024-11-23 03:04 ==
LOC: DI 02:44
PROVIDERS: PCP Physician Assistant Medical; Visit Provider Physician Assistant Medical
DX: G62.9 Polyneuropathy, unspecified (principal); M51.379 Other intervertebral disc degeneration, lumbosacral region without mention of lumbar back pain or lower extremity pain
CPT/HCPCS: 72110

== ENCOUNTER 2025-01-25 02:31 | Outpatient (CLI) | payer BC, SELFPAY ==
--- NOTE | 2025-01-25 11:30 | DI.MRI_ITS ---
Exam(s) MR LUMBAR SPINE WO EXAM: MR LUMBAR SPINE WO CLINICAL HISTORY: NEUROPATHY,POLYNEUROPATHY,G62.9. TECHNIQUE: Multiplanar multisequence MRI of the Lumbar spine was performed. COMPARISON: MR MRI - LUMBAR SPINE WO CONTRAST from 04/02/2012 CR XR LUMBAR SPINE COMPLETE from 11/23/2024 FINDINGS: Bones: The last intervertebral disc space is designated the L5/S1 level for the numbering purpose of this examination. Mild anterior wedging of T12 vertebral body consistent with mild old compression fracture. The remaining vertebral body heights are well maintained. Alignment: Unremarkable. Marrow signal: Some red marrow reconversion. Cord: The conus tip ends at the T12 level. It is of normal size and signal intensity. T12-L1: No focal disc herniation is present. No central spinal canal stenosis.No neural foraminal stenosis. L1-2: No focal disc herniation is present. No central spinal canal stenosis.No neural foraminal stenosis. L2-3: No focal disc herniation is present. No central spinal canal stenosis.No neural foraminal stenosis. L3-4: Normal disc height. Mild disc bulging.No focal disc herniation is present. There is increased fat within the epidural space, causing mild central spinal canal stenosis.No neural foraminal stenosis. L4-5:Mild loss of disc height posteriorly. Mild disc osteophytes eccentric toward the right. No focal disc herniation is present. Significantly increased fat within the epidural space, causing moderate to severe narrowing of the central canal.. Facet degenerative changes contributing to mild bilateral neural foraminal stenosis. L5-S1: Moderate loss of disc height and circumferential disc osteophytes. Increased fat within the epidural space causing moderate central canal stenosis. Facet degenerative changes cause neural foraminal encroachment on the left.No focal disc herniation is present. No central spinal canal stenosis.No neural foraminal stenosis. The visualized SI joints and sacrum are unremarkable. Soft tissues: The paraspinal soft tissues are unremarkable. IMPRESSION: Significant epidural fat deposition at the L4-5 through L5-S1 levels causing moderate to severe central canal stenosis, greater at L4-5. Degenerative disc changes and facet degenerative changes contribute to mild bilateral neural foraminal narrowing at these levels. DATA REPOSITORY:
== END 2025-01-25 02:51 ==
PROVIDERS: PCP Physician Assistant Medical; Visit Provider Physician Assistant Medical
DX: M48.061 Spinal stenosis, lumbar region without neurogenic claudication (principal)
CPT/HCPCS: 72148